=== PATIENT | male | born 1995 | race Two or more races ===

== ENCOUNTER 2025-06-27 18:29 | Emergency (ER) | payer MEDICAID, SELFPAY ==
[2025-06-27 18:30] VITALS: BMI 21.1
[2025-06-27 18:49] VITALS: BP 114/77; PULSE 92; RESP 18; TEMP 36.8; O2SAT 95
[2025-06-27 19:46] VITALS: BP 111/70; PULSE 81; RESP 18; TEMP 37.1; O2SAT 96
--- NOTE | 2025-06-27 19:51 | XR_ITS ---
Examination: Testicular sonography complete Technique: Grayscale sonographic images testes, assessment arterial inflow venous outflow Doppler spectral analysis carful analysis Date and time: June 27, 2025, 2045 hrs. Indications: Right testicular pain today. Findings: Right testis 4.4 cm epididymis 1.2 cm Appendix testis 6 mm Arterial flow testicle. No testicular mass Left testis 3.9 cm epididymis 1.2 cm Arterial flow testicle. No testicular mass Appendix testis 6 mm Impression: No testicular torsion or testicular mass
--- NOTE | 2025-06-27 19:51 | XR_ITS ---
Examination: CT abdomen and pelvis without contrast. Coronal 3-D reconstructions. Sagittal 2-D reconstructions. Date and time of exam:June 27, 2025, 2045 hrs. Indications: Right lower leg pain abdomen pain back pain beginning one week ago CTDI: vol (mGy): 4.87 DLP: (mGycm): 272 Technique: Axial images of the abdomen have been obtained, 3 mm slice thickness Intravenous contrast material has not been administered. Low dose protocols were performed. One or more of the following dose reduction techniques were used; automated exposure control, adjustment of the mA and/or KV according to patient size, use of iterative reconstruction technique. Findings: No focal liver or splenic lesions Contracted gallbladder No pancreatic or adrenal mass No renal or ureteral calculi, no hydronephrosis Aorta normal size Normal appendix No bowel obstruction No diverticulitis Prostate calcification Contracted urinary bladder, mild urinary bladder wall thickening The osseous structures are intact Impression: No renal or ureteral calculi, no hydronephrosis Normal appendix Cystitis pattern
--- NOTE | 2025-06-27 19:55 | EDNOTE_ITS ---
ED Male Genitalurinary RME/HPI General Chief complaint: Back Pain/Injury Stated complaint: BACK PAIN X 3 WKS, TESTICULAR TODAY Time Seen by Provider: 06/27/25 19:51 Arrival date/time: 06/27/25 18:29 30M with history of drug/alcohol use presents to ED with 3 weeks of low back pain, possibly from he lifted something heavy. Pain is more with ROM. Patient denies fall/trauma and bowel/bladder incontinence. Separately, patient today had some sudden R testicular pain that radiates to back. Patient denies penile dis charge, concern for STD, dysuria, and N/V. Limitations: no limitations Related Data Home Medications ?Medication ?Instructions ?Recorded ?Confirmed No Known Home Medications 10/11/2009/23 Allergies Allergy/AdvReac Type Severity Reaction Status Date / Time latex Allergy Severe Swelling Verified 06/27/25 18:32 of Lip/Tongue/Throat Review of Systems Review of Systems Systems Reviewed: All systems reviewed, normal except as documented Constitutional Constitutional: Reports system reviewed and no additional complaints, except as documented, Denies fever(s) and Denies headache(s) ENT Ears, Nose, Mouth, and Throat: Denies disequilibrium and Denies headache(s) Cardiovascular Cardiovascular: Reports system reviewed and no additional complaints, except as documented, Denies chest pain and Denies dyspnea Respiratory Respiratory: Reports system reviewed and no additional complaints, except as documented, Denies cough and Denies dyspnea Gastrointestinal Gastrointestinal: Reports system reviewed and no additional complaints, except as documented, Denies abdominal pain, Denies nausea and Denies vomiting Genitourinary Genitourinary: Reports as per HPI and Reports testicular pain Musculoskeletal Musculoskeletal: Reports as per HPI and Reports back pain Neurologic Neurologic: Reports system reviewed and no additional complaints, except as documented, Denies confusion, Denies disequilibrium and Denies headache(s) Psychiatric Psychiatric: Denies confusion Past Medical History Past Medical History CARDIAC: Negative Congestive Heart Failure RESPIRATORY: Negative Chronic Obstructive Pulmonary Disease (COPD) GENITOURINARY: Negative Renal Disease ENDOCRINE: Negative Diabetes Mellitus Type 1 or Diabetes Mellitus Type 2 Social History SMOKING STATUS: Current every day smoker ED Exam General Limitations: Present no limitations General appearance: Present alert and in no apparent distress Head Head exam: Present atraumatic Eye Eye exam: Present normal appearance, PERRL and EOMI ENT ENT exam: Present normal exam, normal oropharynx and mucous membranes moist Neck Neck exam: Present normal inspection, full ROM and trachea midline Chest Chest inspection: Present normal inspection and symmetric chest wall rise Respiratory Respiratory exam: Present normal lung sounds bilaterally Cardiovascular Cardiovascular exam: Present regular rate, normal rhythm and normal heart sounds Abdominal Exam Abdominal exam: Present soft and normal bowel sounds Extremities Exam Extremities exam: Present normal inspection and full ROM Back Exam Back exam: Present normal inspection and full ROM Neurological Exam Neurological exam: Present alert, oriented X3 and CN II-XII intact Psychiatric Psychiatric exam: Present normal affect and normal mood Skin Skin exam: Present warm, dry, intact and normal color Course Quality Measures none Orders Category Date Time Status CT abdomen pelvis wo con Stat Exams 06/27/25 19:51 Completed US testicular Stat Exams 06/27/25 19:51 Completed CBC Stat Lab 06/27/25 20:01 Completed CMP [Comprehensive Metabolic Panel] Stat Lab 06/27/25 20:01 Completed Drug Screen,Urine Stat Lab 06/27/25 20:31 Completed Lipase Stat Lab 06/27/25 20:01 Completed Urinalysis, C/S if Indicated Stat Lab 06/27/25 20:31 Completed Naproxen [Naprosyn] Med 06/27/25 21:40 Discontinued 500 mg PO X1 ONE Vital Signs Vital signs: Vital Signs Temperature 98.2 F 06/27/25 18:49 Pulse Rate 92 06/27/25 18:49 Respiratory Rate 18 06/27/25 18:49 Blood Pressure 114/77 06/27/25 18:49 Pulse Oximetry (%) 95 06/27/25 18:49 Oxygen Delivery Method Room Air 06/27/25 18:49 O2 at 95% on RA and WNLs Urogenital - Male MDM Narrative MDM Narrative:: 30M with history of drug/alcohol use presents to ED with 3 weeks of low back pain, possibly from he lifted something heavy. Pain is more with ROM. Patient denies fall/trauma and bowel/bladder incontinence. Separately, patient today had some sudden R testicular pain that radiates to back. Patient denies penile discharge, concern for STD, dysuria, and N/V. Physical exam with zelalem Arambula CNA reveals no obvious R testicular swelling or tenderness. No midline back or CVA tenderness. Gait normal. ROM intact. Patient is afebrile, calm, and alert. CT possible cystitis, but UA clean. US unremarkable. CMP unremarkable. Back pain likely MSK-in nature. Meds and pediatric genetic counselor given. Patient data External records reviewed:: [facility] previous records Clinical information provided by:: patient Social determinants that could affect healthcare access:: alcohol use Patient has the following chronic illnesses:: alcohol/drug How is presenting disease/condition affected by chronic disease/condition?: exacerbated by Evaluation data The following diagnostics were reviewed and interpreted by me:: lab results and radiology exam(s) Lab and/or radiology exams considered but not ordered:: ordered Interpretation Summary: above Medications / Prescriptions Medications or Prescriptions considered but not ordered:: not ordered Medication administrations:: Medication Administration History Discontinued Medications Naproxen (Naproxen 250 Mg Tablet) 500 mg PO X1 ONE Stop: 06/27/25 21:41 Last Admin: 06/27/25 21:53 Dose: 500 mg Documented By: CHERELLE n/a Consultations Consultation(s) initiated? (list below): No Diagnosis Urogenital Male Differential Diagnosis: urinary tract infection, priapism, urethritis, epididymitis, genital herpes simplex, prostatitis, acute retention of urine, inguinal hernia and other (back pain and R testicular pain) Most likely diagnosis given after review of the tests above:: back pain and R testicular pain Admission Indicated Admission indicated?: not indicated Admission Request Was there a request for admission?: No Disposition Plan Disposition Plan: Discharge Discharge Attestation Discharge Attestation: The patient and all family members were given an opportunity to ask questions and understood the discharge instructions. Discharge instructions specifically effects, indications for sooner follow up or return to the emergency department, and the expected course of current diagnosis. Patient condition: Stable Discharge Plan Plan Patient Disposition: HOME (Self Care) Discharge Disposition comment: Stable Prescriptions/Referrals Prescriptions/Med Rec: No Action No Known Home Medications Referrals: No Primary/Family,Physician [Primary Care Provider] - In 1 week Problem List Clinical Impression: Back pain, Right testicular pain Patient/Caregiver Discharge Instructions Education Materials: ED Back Pain (Acute or Chronic), ED Testicular Pain, Unclear Cause Additional Instructions: Please follow-up with PCP within 24-48 hours and return immediately if symptoms worsen. If problem persists, recommend outpatient PT and/or MRI follow-up. In the meantime, rest, use ice/heat, and/or compression. NSAIDs like ibuprofen tend to work better for this type of pain. Print Language: Chinese Stand Alone Forms: Patient Portal Info Letter LISA/THORACIC MEDICINE SPECIALIST Supervising Physician PA/THORACIC MEDICINE SPECIALIST Supervising Physician: Dr. Shen
[2025-06-27 20:12] LABS: Basophils # (Auto) 0.1 Thou/mm3 (0.0-0.2); Basophils % (Auto) 1 % (0-2.5); Eosinophils # (Auto) 0.1 Thou/mm3 (0.0-0.5); Eosinophils % (Auto) 1 % (0-10); Hematocrit 46.1 % (41.0-53.0); Hemoglobin 16.4 g/dL (13.5-16.0); Immature Granulocytes Auto 0.11 Thou/mm3 (0.00-0.00); Lymphocytes # (Auto) 2.7 Thou/mm3 (1.0-4.8); Lymphocytes % (Auto) 24 % (10-50); Mean Corpuscular HGB Conc 35.6 g/dl (31.0-37.0); Mean Corpuscular Hemoglobin 30.9 pg (25.0-35.0); Mean Corpuscular Volume 87 fL (80-100); Monocytes # (Auto) 0.9 Thou/mm3 (0.0-0.8); Monocytes % (Auto) 8 % (0-12); Neutrophils # (Auto) 7.6 Thou/mm3 (1.8-7.7); Neutrophils % (Auto) 66 % (37-80); Nucleated Red Blood Cell # 0.00 Thou/mm3 (0.00-0.00); Nucleated Red Blood Cell % 0 /100 WBC (0); Platelet Count 330 Thou/mm3 (140-440); RDW Standard Deviation 39.9 fL (35.1-43.9); Red Blood Count 5.30 Miln/mm3 (4.50-5.90); White Blood Count 11.5 Thou/mm3 (3.8-10.6)
[2025-06-27 20:33] LABS: Alanine Aminotransferase 17 U/L (10-49); Albumin, Serum 5.4 gm/dL (3.5-5.0); Albumin/Globulin Ratio 1.7 (1.2-2.2); Alkaline Phosphatase 91 U/L (46-116); Anion Gap 11 (7-16); Aspartate Amino Transferase 29 U/L (0-34); BUN/Creatinine Ratio 8 Ratio (12-20); Bilirubin,Total 0.6 mg/dL (0.3-1.2); Blood Urea Nitrogen 10 mg/dL (9-23); Calcium 10.9 mg/dL (8.3-10.6); Calcium (Corrected) 10.9 mg/dL (8.5-10.1); Carbon Dioxide 29.1 mMol/L (20.0-31.0); Chloride 98 mMol/L (98-107); Creatinine (Component) 1.2 mg/dL (0.6-1.3); Estimated Creatinine Clearance 78.0 mL/min (>60); Globulin 3.2 gm/dL (2.3-3.5); Glucose 92 mg/dL (74-106); Lipase 34 U/L (12-53); Osmolality,Calculated 274 (275-295); Potassium 4.7 mMol/L (3.4-5.1); Sodium 138 mMol/L (136-145); Total Protein 8.6 gm/dL (5.7-8.2); eGFR > 60 See Note
[2025-06-27 20:41] LABS: Collection Type, Urine Clean Catch
[2025-06-27 20:49] LABS: Bilirubin,Urine Negative (Negative); Blood,Urine Negative (Negative); Clarity,Urine Clear (Clear/Hazy); Color,Urine Yellow (Lt Yel-Yel); Culture Indicated,Urine Not Indicated; Glucose, Urine Negative (Negative); Ketones,Urine Negative (Negative); Leukocyte Esterase,Urine Negative (Negative); Nitrite,Urine Negative (Negative); PH,Urine 5.5 (5.0-7.0); Protein,Urine 1+ (Neg - Trace); RBC,Urine 2 /hpf (0-3); Specific Gravity,Urine 1.033 (1.001-1.035); Squamous Epithelial Cell,Urine 1 /hpf (0-5); Urobilinogen,Urine Negative mg/dL (0.0-1.0); WBC,Urine 1 /hpf (0-5)
[2025-06-27 20:53] LABS: Amphetamine/Methamp Scrn,U Negative (Negative); Barbiturate Screen,Urine Negative (Negative); Benzodiazepines Screen,Urine Negative (Negative); Benzoylecgonine Screen, Ur Negative (Negative); Fentanyl Screen,Urine Negative (Negative); Opiate Screen,Urine Negative (Negative); THC Screen,Urine Positive (Negative)
[2025-06-27] MEDS: NAPROXEN 250 MG TABLET 500 MG PO (21:53)
== END 2025-06-27 21:58 | disposition home or self-care (01) ==
PROVIDERS: Physician Assistant; Emergency Provider Emergency Medicine
DX: M54.50 Low back pain, unspecified (principal); N50.811 Right testicular pain
CPT/HCPCS: 36415; 74176; 76870; 80053; 80307; 81001; 83690; 85025; 99283; A9270